=== PATIENT | female | born 2000 | race Two or more races ===

== ENCOUNTER 2022-07-07 01:46 | Emergency (ER) | payer OTHER ==
--- OUTSIDE RECORDS SUMMARY | 2022-07-07 01:51 | XMS REPORT | Continuity of Care Document ---
:2000 Author Organization [facility] t Address [address] [place] [place] [address] Care Team Providers Name Role Phone MARIELY BLOUNT Primary Care Physician Unavailable JOSE MOYER Attending Clinician Unavailable FLAVIA DUVAL Attending Clinician Unavailable MARIELY BLUONT Attending Clinician Unavailable PRAMOD OCONNOR Attending Clinician Unavailable PRAMOD OCONNOR Attending Clinician Unavailable Osbaldo Larose Attending Clinician Rody Mojica MA Attending Clinician Unavailable OSBALDO BERMEO Attending Clinician Unavailable ANTONIO AKHTAR Attending Clinician Unavailable Mariely Varela Attending Clinician NEVAEH JIMENEZ Attending Clinician Unavailable NEVAEH JIMENEZ Attending Clinician Unavailable Bhaskar Joy RN Attending Clinician Unavailable Jose Moyer MD Attending Clinician Riky Salcido RPH Attending Clinician Unavailable Cynthia[facility] Attending Clinician Unavailable LOLA CURRY Attending Clinician Unavailable Payers Payer Name Policy Type Policy Number Effective Date Expiration Date S abimael [facility] [id number] 2021 00:00:00 [facility] [id number] 2021 00:00:00 Problems Condition Condition Condition Status Onset Resolution Last Treating Co mments Source Name Details Category Date Date Treatment Clinician Date Intractabl Intractabl Disease Active 2021-06 U nivers e migraine e migraine 1-11 it y of without without 00:00: [place] aura and aura and 00 Medica l without without Branch status status migrainosu migrainosu s s Bilateral Bilateral Disease Active 2021-06 Uni vers occipital occipital 06-22 ity of neuralgia neuralgia 00:[place] [facility] [place] Memory Memory Disease Active 2021-06 Univers disturbanc disturbanc 06-22 it y of e e 00:00: [place] 00 Medical Branch Nausea Nausea Disease Active 2021-06 Univers 11 ity of 00:00: [place] 00 Medical Branch Allergies, Adverse Reactions, Alerts Allergy Allergy Status Severity Reaction(s) Onset Inactive Treating Comm ents Source Name Type Date Date Clinician Penicill Propensi Active Anaphylaxis 2021-06 U nivers ins ty to 06-22 ity of adverse 00:00: [place] reaction 00 Medical s Branch PENICILL Drug Active High Anaphylaxis 2021-06 Uni vers INS Class 06-22 ity of 00:00: [place] 00 Medical Branch Penicill Propensi Active Other (See 2020-06 unknown M ethodi in G ty to Comments) 06-29 st adverse 00:00: Hospita reaction 00 l s to drug NO KNOWN Drug Active Univers ALLERGIE Class ity of S [facility] Social History Social Habit Start Date Stop Date Quantity Comments Source History of Passive smoker University of tobacco use [facility] Exposure to 2022-06-20 2022-06-30 Not sure [facility] SARS-CoV-2 00:00:00 10:04:00 [facility] (event) [place] Alcohol intake 2022-05-24 2022-05-24 Current drinker Unive rsity of 00:00:00 00:00:00 of alcohol [facility] (finding) [place] Tobacco use and 2022-04-28 2022-04-28 Smokeless tobacco Un iversity of exposure 00:00:00 00:00:00 non-user [facility] Alcohol Comment 2022-04-22 2022-04-22 occ Universit y of 00:00:00 00:00:00 [facility] Sex Assigned At [birth year] [facility] 00:00:00 00:00:00 Smoking Status Start Date Stop Date Source Tobacco smoking consumption Meth [facility] unknown Never smoked tobacco [facility] Medications Ordered Filled Start Stop Current Ordering Indication Dosage Frequency Signature Comments Components Source Medication Medication Date Date Medication? Clinician (SIG) Name Name liraglutide 2021-06- Yes [id number] inject 0.6 Univers , weight 2-22 02-03 mg under ity of loss, 3 00:00: 05:59 the skin [place] mg/0.5 mL 00 :00 daily for Medic al (18 mg/3 7 days, Branch mL) PnIj THEN 1.2 mg daily for 7 days, THEN 1.8 mg daily for 7 days, THEN 2.4 mg daily for 7 days, THEN 3 mg daily thereafter . liraglutide 2021-06- Yes [id number] inject 0.6 Univers , weight 2-22 02-03 mg under ity of loss, 3 00:00: 05:59 the skin [place] mg/0.5 mL 00 :00 daily for Medic al (18 mg/3 7 days, Branch mL) PnIj THEN 1.2 mg daily for 7 days, THEN 1.8 mg daily for 7 days, THEN 2.4 mg daily for 7 days, THEN 3 mg daily thereafter . liraglutide 2021-06- Yes [id number] inject 0.6 Univers , weight 2-22 02-03 mg under ity of loss, 3 00:00: 05:59 the skin [place] mg/0.5 mL 00 :00 daily for Medic al (18 mg/3 7 days, Branch mL) PnIj THEN 1.2 mg daily for 7 days, THEN 1.8 mg daily for 7 days, THEN 2.4 mg daily for 7 days, THEN 3 mg daily thereafter . liraglutide 2021-06- Yes [id number] .6mg inject 0.6 Univers , weight 2-22 01-22 mg under ity of loss, 3 00:00: 05:59 the skin [place] mg/0.5 mL 00 :00 in the Medical (18 mg/3 morning Branch mL) PnIj for 30 days. tirzepatide 2021-06- No [id number] 2.5mg inject 1 Univers (MOUNJARO) -27 05- pen (2.5 ity of 2.5 mg/0.5 00:00: 00:00 mg) under [place] mL PnIj 00 :00 the skin Medical weekly for Branch 30 days. tirzepatide 2021-06- No [id number] 2.5mg inject 1 Univers (MOUNJARO) 2-16 -22 pen (2.5 ity of 2.5 mg/0.5 00:00: 00:00 mg) under [place] mL PnIj 00 :00 the skin [facility] weekly for Branch 30 days. tirzepatide 2021-06- Yes [id number] inject 2.5 Univers 2.5 mg/0.5 2-15 02-14 mg under ity of mL 00:00: 05:59 the skin [place] subcutaneou 00 :00 weekly for Me dical s injection 30 days, Bran ch THEN 5 mg weekly for 30 days. tirzepatide 2021-06- No [id number] inject 2.5 Univers 2.5 mg/0.5 2-15 12-16 mg under ity of mL 00:00: 00:00 the skin [place] subcutaneou 00 :00 weekly for Me dical s injection 30 days, Bran ch THEN 5 mg weekly for 30 days. semaglutide 2021-06- No [id number] inject 2.5 Univers , weight 2-14 12-15 mg under ity of loss, 00:00: 00:00 the skin [facility]) 00 :00 weekly for Medic al 0.5 mg/0.5 30 days, Branc h mL PnIj SC THEN 0.5 injection mg weekly for 30 days. semaglutide 2021-06- No [id number] inject 2.5 Univers , weight 2-14 12-15 mg under ity of loss, 00:00: 00:00 the [facility] ([facility]) 00 :00 weekly for Medic al 0.5 mg/0.5 30 days, Branc h mL PnIj SC THEN 0.5 injection mg weekly for 30 days. semaglutide 2021-06- No [id number] inject 2.5 Univers , weight 2-14 12-15 mg under ity of loss, 00:00: 00:00 the [facility] ([facility]) 00 :00 weekly for Medic al 0.5 mg/0.5 30 days, Branc h mL PnIj SC THEN 0.5 injection mg weekly for 30 days. semaglutide 2021-06- No [id number] inject Univers , weight 2-13 12-14 0.25 mg ity of loss, 00:00: 00:00 under the [facility]) 00 :00 skin Medical 0.25 mg/0.5 weekly for Br anch mL PnIj SC 30 days, injection THEN 0.25 mg weekly for 30 days. semaglutide 2021-06- No [id number] inject Univers , weight 2-13 12-14 0.25 mg ity of loss, 00:00: 00:00 under the [place] (WEGOVY) 00 :00 skin Medical 0.25 mg/0.5 weekly for Br anch mL PnIj SC 30 days, injection THEN 0.25 mg weekly for 30 days. Cholecalcif 2021-06 Yes [id number] Take 1 Univers [place], 1-14 capsule by ity of Vitamin D3, 00:00: mouth [place] 1,250 mcg 00 weekly. Medical (50,000 Branch unit) capsule Cholecalcif 2021-06 Yes [id number] Take 1 Univers [place], 1-14 capsule by ity of Vitamin D3, 00:00: mouth [place] 1,250 mcg 00 weekly. Medical (50,000 Branch unit) capsule Cholecalcif 2021-06 Yes [id number] Take 1 Univers [place], 1-14 capsule by ity of Vitamin D3, 00:00: mouth [place] 1,250 mcg 00 weekly. Medical (50,000 Branch unit) capsule Cholecalcif 2021- Yes [id number] Take 1 Univers [place], 1-14 capsule by ity of Vitamin D3, 00:00: mouth [place] 1,250 mcg 00 weekly. Medical (50,000 Branch unit) capsule Cholecalcif 2021- Yes [id number] Take 1 Univers [place], 1-14 capsule by ity of Vitamin D3, 00:00: mouth [place] 1,250 mcg 00 weekly. Medical (50,000 Branch unit) capsule Cholecalcif 2021- Yes [id number] Take 1 Univers [place], 1-14 capsule by ity of Vitamin D3, 00:00: mouth [place] 1,250 mcg 00 weekly. Medical (50,000 Branch unit) capsule Cholecalcif 2021- Yes [id number] Take 1 Univers [place], 1-14 capsule by ity of Vitamin D3, 00:00: mouth [place] 1,250 mcg 00 weekly. Medical (50,000 Branch unit) capsule Cholecalcif 2021- Yes [id number] Take 1 Univers [place], 1-14 capsule by ity of Vitamin D3, 00:00: mouth [place] 1,250 mcg 00 weekly. Medical (50,000 Branch unit) capsule Cholecalcif 2021-06 Yes [id number] Take 1 Univers [place], 1-14 capsule by ity of Vitamin D3, 00:00: mouth [place] 1,250 mcg 00 weekly. Medical (50,000 Branch unit) capsule Cholecalcif 2021-06 Yes [id number] Take 1 Univers [place], 1-14 capsule by ity of Vitamin D3, 00:00: mouth [place] 1,250 mcg 00 weekly. Medical (50,000 Branch unit) capsule Cholecalcif 2021-06 Yes [id number] Take 1 Univers [place], 1-14 capsule by ity of Vitamin D3, 00:00: mouth [place] 1,250 mcg 00 weekly. Medical (50,000 Branch unit) capsule Cholecalcif 2021-06 Yes [id number] Take 1 Univers [place], 1-14 capsule by ity of Vitamin D3, 00:00: mouth [place] 1,250 mcg 00 weekly. Medical (50,000 Branch unit) capsule Cholecalcif 2021-06 Yes [id number] Take 1 Univers [place], 1-14 capsule by ity of Vitamin D3, 00:00: mouth [place] 1,250 mcg 00 weekly. Medical (50,000 Branch unit) capsule magnesium 2021-06 Yes [id number] 400mg Take 400 Univers oxide 400 1-11 mg by ity of mg 00:00: mouth [place] magnesium 00 daily. Medical Tab Branch fremanezuma 2021-06 Yes [id number] 225mg inject 1 Univers b-vfrm 1-11 Syringe ity of (AJOVY 00:00: under the [place] AUTOINJECTO 00 skin once Med ical R) 225 every Branch mg/1.5 mL month. AtIn amitriptyli 2021-06 Yes [id number] 25mg Take 1 Univers ne 25 mg 1-11 tablet by ity of tablet 00:00: mouth at [place] 00 bedtime. Medical Branch proMETHazin 2021-06 Yes [id number] 12.5mg Take 1 Univers e 12.5 mg 1-11 tablet by ity o f tablet 00:00: mouth [place] 00 every 4 Medical (four) Branch hours as needed for Nausea and Vomiting (N/V). magnesium 2021-06 Yes [id number] 400mg Take 400 Univers oxide 400 1-11 mg by ity of mg 00:00: mouth [place] magnesium 00 daily. Medical Tab Branch fremanezuma 2021-06 Yes [id number] 225mg inject 1 Univers b-vfrm 1-11 Syringe ity of (AJOVY 00:00: under the [place] AUTOINJECTO 00 skin once Med ical R) 225 every Branch mg/1.5 mL month. AtIn SUMAtriptan 2021-06 Yes TAKE 1 Univ ers 50 mg 1-11 TABLET BY ity of tablet 00:00: MOUTH 1 [place] 00 TIME NOW Medical FOR 1 DOSE Branch amitriptyli 2021-06 Yes [id number] 25mg Take 1 Univers ne 25 mg 1-11 tablet by ity of tablet 00:00: mouth at [place] 00 bedtime. Medical Branch proMETHazin 2021-06 Yes [id number] 12.5mg Take 1 Univers e 12.5 mg 1-11 tablet by ity o f tablet 00:00: mouth [place] 00 every 4 Medical (four) Branch hours as needed for Nausea and Vomiting (N/V). magnesium 2021-06 Yes [id number] 400mg Take 400 Univers oxide 400 1-11 mg by ity of mg 00:00: mouth [place] magnesium 00 daily. Medical Tab Branch [facility] 2021-06 Yes [id number] 225mg inject 1 Univers b-vfrm 1-11 Syringe ity of (AJOVY 00:00: under the [place] AUTOINJECTO 00 skin once Med ical R) 225 every Branch mg/1.5 mL month. AtIn SUMAtriptan 2021-06 Yes TAKE 1 Univ ers 50 mg 1-11 TABLET BY ity of tablet 00:00: MOUTH 1 [place] 00 TIME NOW Medical FOR 1 DOSE Branch amitriptyli 2021-06 Yes [id number] 25mg Take 1 Univers ne 25 mg 1-11 tablet by ity of tablet 00:00: mouth at [place] 00 bedtime. Medical Branch proMETHazin 2021-06 Yes [id number] 12.5mg Take 1 Univers e 12.5 mg 1-11 tablet by ity o f tablet 00:00: mouth [place] 00 every 4 Medical (four) Branch hours as needed for Nausea and Vomiting (N/V). magnesium 2021-06 Yes [id number] 400mg Take 400 Univers oxide 400 1-11 mg by ity of mg 00:00: mouth [place] magnesium 00 daily. Medical Tab Branch christaezuma 2021-06 Yes [id number] 225mg inject 1 Univers b-vfrm 1-11 Syringe ity of (AJOVY 00:00: under the [place] AUTOINJECTO 00 skin once Med ical R) 225 every Branch mg/1.5 mL month. AtIn SUMAtriptan 2021-06 Yes TAKE 1 Univ ers 50 mg 1-11 TABLET BY ity of tablet 00:00: MOUTH 1 [place] 00 TIME NOW Medical FOR 1 DOSE Branch amitriptyli 2021-06 Yes [id number] 25mg Take 1 Univers ne 25 mg 1-11 tablet by ity of tablet 00:00: mouth at [place] 00 bedtime. Medical Branch proMETHazin 2021-06 Yes [id number] 12.5mg Take 1 Univers e 12.5 mg 1-11 tablet by ity o f tablet 00:00: mouth [place] 00 every 4 Medical (four) Branch hours as needed for Nausea and Vomiting (N/V). magnesium 2021-06 Yes [id number] 400mg Take 400 Univers oxide 400 1-11 mg by ity of mg 00:00: mouth [place] magnesium 00 daily. Medical Tab Branch christaonesimo 2021-06 Yes [id number] 225mg inject 1 Univers b-vfrm 1-11 Syringe ity of (AJOVY 00:00: under the [place] AUTOINJECTO 00 skin once Med ical R) 225 every Branch mg/1.5 mL month. AtIn SUMAtriptan 2021-06 Yes TAKE 1 Univ ers 50 mg 1-11 TABLET BY ity of tablet 00:00: MOUTH 1 [place] 00 TIME NOW Medical FOR 1 DOSE Branch amitriptyli 2021-06 Yes [id number] 25mg Take 1 Univers ne 25 mg 1-11 tablet by ity of tablet 00:00: mouth at [place] 00 bedtime. Medical Branch proMETHazin 2021-06 Yes [id number] 12.5mg Take 1 Univers e 12.5 mg 1-11 tablet by ity o f tablet 00:00: mouth [place] 00 every 4 Medical (four) Branch hours as needed for Nausea and Vomiting (N/V). magnesium 2021-06 Yes [id number] 400mg Take 400 Univers oxide 400 1-11 mg by ity of mg 00:00: mouth [place] magnesium 00 daily. Medical Tab Branch fremanezuma 2021-06 Yes [id number] 225mg inject 1 Univers b-vfrm 1-11 Syringe ity of (AJOVY 00:00: under the [place] AUTOINJECTO 00 skin once Med ical R) 225 every Branch mg/1.5 mL month. AtIn SUMAtriptan 2021-06 Yes TAKE 1 Univ ers 50 mg 1-11 TABLET BY ity of tablet 00:00: MOUTH 1 00 TIME NOW Medical FOR 1 DOSE Branch amitriptyli 2021-06 Yes [id number] 25mg Take 1 Univers ne 25 mg 1-11 tablet by ity of tablet 00:00: mouth at [place] 00 bedtime. Medical Branch proMETHazin 2021-06 Yes [id number] 12.5mg Take 1 Univers e 12.5 mg 1-11 tablet by ity o f tablet 00:00: mouth [place] 00 every 4 Medical (four) Branch hours as needed for Nausea and Vomiting (N/V). magnesium 2021-06 Yes [id number] 400mg Take 400 Univers oxide 400 1-11 mg by ity of mg 00:00: mouth [place] magnesium 00 daily. Medical Tab Branch [facility] 2021-06 Yes [id number] 225mg inject 1 Univers b-vfrm 1-11 Syringe ity of (AJOVY 00:00: under the [place] AUTOINJECTO 00 skin once Med ical R) 225 every Branch mg/1.5 mL month. AtIn SUMAtriptan 2021-06 Yes TAKE 1 Univ ers 50 mg 1-11 TABLET BY ity of tablet 00:00: MOUTH 00 TIME NOW Medical FOR 1 DOSE Branch amitriptyli 2021-06 Yes [id number] 25mg Take 1 Univers ne 25 mg 1-11 tablet by ity of tablet 00:00: mouth at [place] 00 bedtime. Medical Branch proMETHazin 2021-06 Yes [id number] 12.5mg Take 1 Univers e 12.5 mg 1-11 tablet by ity o f tablet 00:00: mouth [place] 00 every 4 Medical (four) Branch hours as needed for Nausea and Vomiting (N/V). magnesium 2021-06 Yes [id number] 400mg Take 400 Univers oxide 400 1-11 mg by ity of mg 00:00: mouth [place] magnesium 00 daily. Medical Tab Branch fremanezuma 2021-06 Yes [id number] 225mg inject 1 Univers b-vfrm 1-11 Syringe ity of (AJOVY 00:00: under the [place] AUTOINJECTO 00 skin once Med ical R) 225 every Branch mg/1.5 mL month. AtIn SUMAtriptan 2021-06 Yes TAKE 1 Univ ers 50 mg 1-11 TABLET BY ity of tablet 00:00: MOUTH 1 00 TIME NOW Medical FOR 1 DOSE Branch amitriptyli 2021-06 Yes [id number] 25mg Take 1 Univers ne 25 mg 1-11 tablet by ity of tablet 00:00: mouth at [place] 00 bedtime. Medical Branch proMETHazin 2021-06 Yes [id number] 12.5mg Take 1 Univers e 12.5 mg 1-11 tablet by ity o f tablet 00:00: mouth [place] 00 every 4 Medical (four) Branch hours as needed for Nausea and Vomiting (N/V). magnesium 2021-06 Yes [id number] 400mg Take 400 Univers oxide 400 1-11 mg by ity of mg 00:00: mouth [place] magnesium 00 daily. Medical Tab Branch fremanezuma 2021-06 Yes [id number] 225mg inject 1 Univers b-vfrm 1-11 Syringe ity of (AJOVY 00:00: under the [place] AUTOINJECTO 00 skin once Med ical R) 225 every Branch mg/1.5 mL month. AtIn amitriptyli 2021-06 Yes [id number] 25mg Take 1 Univers ne 25 mg 1-11 tablet by ity of tablet 00:00: mouth at [place] 00 bedtime. Medical Branch SUMAtriptan 2021-06 Yes TAKE 1 Univ ers 50 mg 1-11 TABLET BY ity of tablet 00:00: MOUTH 1 00 TIME NOW Medical FOR 1 DOSE Branch amitriptyli 2021-06 Yes [id number] 25mg Take 1 Univers ne 25 mg 1-11 tablet by ity of tablet 00:00: mouth at [place] 00 bedtime. Medical Branch proMETHazin 2021-06 Yes [id number] 12.5mg Take 1 Univers e 12.5 mg 1-11 tablet by ity o f tablet 00:00: mouth [place] 00 every 4 Medical (four) Branch hours as needed for Nausea and Vomiting (N/V). magnesium 2021-06 Yes [id number] 400mg Take 400 Univers oxide 400 1-11 mg by ity of mg 00:00: mouth [place] magnesium 00 daily. Medical Tab Branch fremanezuma 2021-06 Yes [id number] 225mg inject 1 Univers b-vfrm 1-11 Syringe ity of (AJOVY 00:00: under the [place] AUTOINJECTO 00 skin once Med ical R) 225 every Branch mg/1.5 mL month. AtIn SUMAtriptan 2021-06 Yes TAKE 1 Univ ers 50 mg 1-11 TABLET BY ity of tablet 00:00: MOUTH 1 [place] 00 TIME NOW Medical FOR 1 DOSE Branch proMETHazin 2021-06 Yes [id number] 12.5mg Take 1 Univers e 12.5 mg 1-11 tablet by ity o f tablet 00:00: mouth [place] 00 every 4 Medical (four) Branch hours as needed for Nausea and Vomiting (N/V). magnesium 2021-06 Yes [id number] 400mg Take 400 Univers oxide 400 1-11 mg by ity of mg 00:00: mouth [place] magnesium 00 daily. Medical Tab [facility] Yes [id number] 225mg inject 1 Univers b-vfrm 1-11 Syringe ity of (AJOVY 00:00: under the [place] AUTOINJECTO 00 skin once Med ical R) 225 every Branch mg/1.5 mL month. AtIn amitriptyli 2021-06 Yes [id number] 25mg Take 1 Univers ne 25 mg 1-11 tablet by ity of tablet 00:00: mouth at [place] 00 bedtime. Medical Branch proMETHazin 2021-06 Yes [id number] 12.5mg Take 1 Univers e 12.5 mg 1-11 tablet by ity o f tablet 00:00: mouth [place] 00 every 4 Medical (four) Branch hours as needed for Nausea and Vomiting (N/V). magnesium 2021-06 Yes [id number] 400mg Take 400 Univers oxide 400 1-11 mg by ity of mg 00:00: mouth [place] magnesium 00 daily. Medical Tab Branch [facility] 2021-06 Yes [id number] 225mg inject 1 Univers b-vfrm 1-11 Syringe ity of (AJOVY 00:00: under the [place] AUTOINJECTO 00 skin once Med ical R) 225 every Branch mg/1.5 mL month. AtIn amitriptyli 2021-06 Yes [id number] 25mg Take 1 Univers ne 25 mg 1-11 tablet by ity of tablet 00:00: mouth at [place] 00 bedtime. Medical Branch proMETHazin 2021-06 Yes [id number] 12.5mg Take 1 Univers e 12.5 mg 1-11 tablet by ity o f tablet 00:00: mouth [place] 00 every 4 Medical (four) Branch hours as needed for Nausea and Vomiting (N/V). magnesium 2021-06 Yes [id number] 400mg Take 400 Univers oxide 400 1-11 mg by ity of mg 00:00: mouth [place] magnesium 00 daily. Medical Tab Branch fremanezuma 2021-06 Yes [id number] 225mg inject 1 Univers b-vfrm 1-11 Syringe ity of (AJOVY 00:00: under the [place] AUTOINJECTO 00 skin once Med ical R) 225 every Branch mg/1.5 mL month. AtIn amitriptyli 2021-06 Yes [id number] 25mg Take 1 Univers ne 25 mg 1-11 tablet by ity of tablet 00:00: mouth at [place] 00 bedtime. Medical Branch proMETHazin 2021-06 Yes [id number] 12.5mg Take 1 Univers e 12.5 mg 1-11 tablet by ity o f tablet 00:00: mouth [place] 00 every 4 Medical (four) Branch hours as needed for Nausea and Vomiting (N/V). magnesium 2021-06 Yes [id number] 400mg Take 400 Univers oxide 400 1-11 mg by ity of mg 00:00: mouth [place] magnesium 00 daily. Medical Tab Branch fremanezuma 2021-06 Yes [id number] 225mg inject 1 Univers b-vfrm 1-11 Syringe ity of (AJOVY 00:00: under the [place] AUTOINJECTO 00 skin once Med ical R) 225 every Branch mg/1.5 mL month. AtIn amitriptyli 2021-06 Yes [id number] 25mg Take 1 Univers ne 25 mg 1-11 tablet by ity of tablet 00:00: mouth at [place] 00 bedtime. Medical Branch proMETHazin 2021-06 Yes [id number] 12.5mg Take 1 Univers e 12.5 mg 1-11 tablet by ity o f tablet 00:00: mouth [place] 00 every 4 Medical (four) Branch hours as needed for Nausea and Vomiting (N/V). magnesium 2021-06 Yes [id number] 400mg Take 400 Univers oxide 400 1-11 mg by ity of mg 00:00: mouth [place] magnesium 00 daily. Medical Tab Branch [facility] Yes [id number] 225mg inject 1 Univers b-vfrm 1-11 Syringe ity of (AJOVY 00:00: under the [place] AUTOINJECTO 00 skin once Med ical R) 225 every Branch mg/1.5 mL month. AtIn amitriptyli 2021-06 Yes [id number] 25mg Take 1 Univers ne 25 mg 1-11 tablet by ity of tablet 00:00: mouth at [place] 00 bedtime. Medical Branch proMETHazin 2021-06 Yes [id number] 12.5mg Take 1 Univers e 12.5 mg 1-11 tablet by ity o f tablet 00:00: mouth [place] 00 every 4 Medical (four) Branch hours as needed for Nausea and Vomiting (N/V). magnesium 2021-06 Yes [id number] 400mg Take 400 Univers oxide 400 1-11 mg by ity of mg 00:00: mouth [place] magnesium 00 daily. Medical Tab Branch [facility] 2021-06 Yes [id number] 225mg inject 1 Univers b-vfrm 1-11 Syringe ity of (AJOVY 00:00: under the [place] AUTOINJECTO 00 skin once Med ical R) 225 every Branch mg/1.5 mL month. AtIn amitriptyli 2021-06 Yes [id number] 25mg Take 1 Univers ne 25 mg 1-11 tablet by ity of tablet 00:00: mouth at [place] 00 bedtime. Medical Branch proMETHazin 2021-06 Yes [id number] 12.5mg Take 1 Univers e 12.5 mg 1-11 tablet by ity o f tablet 00:00: mouth [place] 00 every 4 Medical (four) Branch hours as needed for Nausea and Vomiting (N/V). SUMAtriptan 2021-06- Yes [id number] 50mg Take 1 Univers 50 mg 1-11 11-12 tablet by ity of tablet 00:00: 05:59 mouth [place] 00 :00 now for 1 Medical dose. Branch SUMAtriptan 2021-06- Yes [id number] 50mg Take 1 Univers 50 mg 06-22 tablet by ity of tablet 00:00: 05:59 mouth [place] 00 :00 now for 1 Medical dose. Branch SUMAtriptan 2021-06- Yes [id number] 50mg Take 1 Univers 50 mg 06-22 tablet by ity of tablet 00:00: 05:59 mouth [place] 00 :00 now for 1 Medical dose. Branch No known 2020-06 No No known Metho di medications -[address] 08:57: [facility] l Vital Signs Vital Name Observation Time Observation Value Comments Source Systolic blood 2022-05-24 21:30:00 114 mm[Hg] [facility] Diastolic blood 2022-05-24 21:30:00 79 mm[Hg] [facility] Heart rate 2022-05-24 21:30:00 94 /min [facility] Body temperature 2022-05-24 21:30:[address] [facility] Respiratory rate 2022-05-24 21:30:00 20 /min [facility] Body height 2022-05-24 21:30:[address] [facility] Body weight 2022-05-24 21:30:[address] [facility] BMI 2022-05-24 21:30:00 36.82 kg/m2 [facility] Oxygen saturation in 2022-05-24 21:30:00 100 /min [facility] Arterial blood by [facility] Pulse oximetry Branch Systolic blood 2022-04-28 15:58:00 130 mm[Hg] [facility] Diastolic blood 2022-04-28 15:58:00 69 mm[Hg] [facility] Heart rate 2022-04-28 15:58:00 77 /min [facility] Body temperature 2022-04-28 15:58:00 37.06 [facility] [place] [facility] 2022-04-28 15:58:[address] [facility] Body weight 2022-04-28 15:58:[address] [facility] BMI 2022-04-28 15:58:00 36.01 kg/m2 [facility] Systolic blood 2022-04-22 20:51:00 112 mm[Hg] Univer sity of pressure [facility] Diastolic blood 2022-04-22 20:51:00 74 mm[Hg] Unive rsity of pressure [facility] Heart rate 2022-04-22 20:51:00 94 /min [facility] Body height 2022-04-22 20:51:[address] [facility] Body weight 2022-04-22 20:51:[address] [facility] BMI 2022-04-22 20:51:00 35.67 kg/m2 [facility] Oxygen saturation in 2022-04-22 20:51:00 98 /min [facility] Arterial blood by [facility] Pulse oximetry Branch Procedures Procedure Date / Time Performed Performing Clinician Sourc e POCT HEMOGLOBIN A1C 2022-05-24 00:00:00 Mariely Blount [facility] TEST [facility] POCT TEST 2022-04-28 00:00:[address] [facility] Plan of Care Planned Activity Planned Date Details Comments Source Future Scheduled 2022-07-07 [facility]ZA [facility]ACCINE [facility] Test 01:49:44 [code = INFLUENZA VACCINE] Future Scheduled 2022-07-07 COVID-19 [facility] 01:49:44 [code = COVID-19 VACCINE (#1)] Future Scheduled 2022-07-07 [facility] 01:49:44 Chlamydia trachomatis (procedure) [code = 238746738] Future Scheduled 2022-07-07 Hepatitis C screening [facility] Test 01:49:44 (procedure) [code = 168127464] Future Scheduled 2022-07-07 [facility] Test 01:49:44 malignant neoplasm of cervix (procedure) [code = 850797757] Encounters Start End Encounter Admission Attending Care Care Encounter Source Date/Time Date/Time Type Type Clinicians Facility Department ID 2022-07-06 Outpatient [facility] [id number] [place] 06:52:18 [id number] [facility] 2022-05-11 Outpatient [facility] [id number] [place] 08:35:23 [id number] [facility] 2022-04-28 Outpatient [facility] [id number] [place] 16:12:19 [id number] [facility] 2022-07-11 2022-07-11 Outpatient SIMIN, [facility] [id number] [place] 15:40[facility]07-06 Outpatient R MINE, [facility] [id number] Univers 15:00:00 15:00:00 MARIELY [facility] 2022-07-06 2022-07-06 Outpatient R [facility] [id number] Univers 14:00:00 [facility] 2022-07-04 Outpatient R [facility]AMOD [facility] B [id number] Univers 15:30:00 15:30:00 PRAMOD OCONNOR [facility] 2022-07-04 2022-07-04 [id number] Univers 00:00:00 00:00:00 Secure Msg Lycia HEALTH [id number] [id number] [phone] [facility] [address] OFFICE BUILDING 2022-06-30 2022-06-30 [facility] [id number] Univers 00:00:00 00:00:00 Secure Msg Rody [place] [id number] [place] [id number] Ak dical [facility] [address] BUILDING 2022-06-22 2022-06-22 [facility] [id number] Univers 14:30:00 14:30:00 OSBALDO [facility] 2022-06-16 2022-06-16 [facility] [id number] Univers 14:00:00 14:00:00 LYCIA [facility] 2022-05-30 2022-05-30 Telephone Mine [facility] [id number] Univers 00:00:00 00:00:00 Mariely FAMILY [id number] it y of MEDICINE [id number] Misael as CLINIC - [phone] [address] 2022-05-27 2022-05-27 Case Mine [facility] [id number] Univers 00:00:00 00:00:00 Management Mariely FAMILY [id number] ity of [place]IC[place] 4.2.7.2.686 [place] as CLINIC - [phone] [address] 2022-05-25 2022-05-25 Outpatient R MINE [facility] [id number] Univers 09:30:00 09:30:00 [facility] 2022-05-25 2022-05-25 Patient Mine [facility] [id number] Univers 00:00:00 00:00:00 Secure Msg Mariely FAMILY [id number] ity of [place] [id number] [place] as CLINIC - [id number] [address] 2022-05-24 2022-05-24 Office Mine [facility] [id number] Univers 15:30:00 16:00:00 Visit Mariely FAMILY [id number] it y of [place]IC[place] [id number] [place] as CLINIC - [id number] [address] 2022-05-24 2022-05-24 Outpatient R MINE [facility] [id number] Univers 15:30:00 15:30:00 [facility] 2022-05-20 2022-05-20 Outpatient R NEVAEH JIMENEZ [facility] [id number] Univers 09:00:00 09:00:00 NEVAEH JIMENEZ [facility] 2022-05-18 2022-05-18 Outpatient R MINE [facility] [id number] Univers 15:30:00 15:30:00 MARIELY [facility] 2022-05-17 2022-05-17 Outpatient R HERMILO [facility] [id number] Univers 14:30:00 14:30:00 ANTONIO mays [facility] 2022-05-17 2022-05-17 Outpatient R MINE [facility] [id number] Univers 09:30:00 09:30:00 MARIELY [facility] 2022-05-13 2022-05-13 Pre Visit YEISON Joy [id number] Univers 00:00:00 00:00:00 Outreach Bhaskar KENNY 350.1.13.10 i [place] [id number] [place] [id number] [place] 2022-04-28 2022-04-28 Outpatient R JOSE MOYER [facility] [id number] Univers 10:00:00 10:28:00 ity [facility] 2022-04-28 2022-04-28 Office Jose Moyer [facility] [id number] Univers 10:00:00 10:28:00 Visit Luciano CALLE 350.1.13.10 i ty [place] [id number] [facility] [address] [facility] 2022-04-27 2022-04-27 Telephone Omari [facility] [id number] Univers 00:00:00 00:00:00 [employer] 350.1.13.10 it [place] [id number] [address] ([facility]) 2022-04-25 2022-04-25 Telephone Elvie [facility] [id number] Univers 00:00:00 00:00:00 Lycia PRIMARY 350.1.13.10 it [id number] [phone] Me dic[address] 2022-04-22 2022-04-22 Animal Control Licensing Worker Draw, Clc-Bls Lab [facility] [id number] Univers 16:00:00 16:15:00 [facility] [id number] [id number] [phone] [address] OFFICE BUILDING 2022-04-22 2022-04-22 Office [facility] [id number] Univers 15:00:00 15:56:25 Visit [facility] 350.1.13.10 it [place] [id number] [address] OFFICE [facility] 2022-04-22 2022-04-22 Outpatient R ELVIE [facility] [id number] Univers 15:00:00 15:56:25 [facility] ity [facility] 2021-04-29 2021-04-29 [place] [id number] [address] [place] 00:00:00 00:00:00 LOLA Johnson Method i st Results Test Description Test Time Test Comments Results Result Comments Source POCT HEMOGLOBIN A1C TEST 2022-05-24 22:20:00 Test Item Value Reference Range Interpretation Comme nts POCT HBA1C (test code = 4548-4) 5.3 % 4-6 Lab Interpretation (test code = 35364-7) Normal [facility] HEMOGLOBIN A1C [id number] 22:20:00 Test Item Value Reference Range Interpretation Comments POCT HBA1C (test code = 4548-4) 5.3 % 4-6 Lab Interpretation (test code = Normal 13126-6) [facility] [id number] 16:34:00 Test Item Value Reference Range Interpretation Comments POCT PREG (test code = 1605) Negative On board controls acceptable with C Yes Line (test code = 3574) POCT PREG LOT # (test code = 3575) POCT PREG TEST DATE (test code = 3576) [facility] [id number] 16:34:00 Test Item Value Reference Range Interpretation Comments POCT PREG (test code = 1605) Negative On board controls acceptable with C Yes Line (test code = 3574) POCT PREG LOT # (test code = 3575) POCT PREG TEST DATE (test code = 3576) [facility]
--- NOTE | 2022-07-07 02:12 | ER ---
Nurse's Notes [facility] Name: Mando Dillon Age: 21 yrs Sex: Female : 2000 Arrival Date: 07/07/2022 Time: 01:48 Bed 13 Private MD: Diagnosis: Trigeminal neuralgia;Dental caries on pit and fissure surface Presentation: 07/07 01:57 Chief complaint: Patient states: I have a horrible tooth ache on my right side of my ha1 jaw. Coronavirus screen: Vaccine status: Patient reports being unvaccinated. Ebola Screen: No symptoms or risks identified at this time. Initial Sepsis Screen: Does the patient meet any 2 criteria? No. Patient's initial sepsis screen is negative. Does the patient have a suspected source of infection? No. Patient's initial sepsis screen is negative. Risk Assessment: Do you want to hurt yourself or someone else? Patient reports no desire to harm self or others. Onset of symptoms was July 07, 2022. 01:57 Method Of Arrival: Ambulatory ha1 01:57 Acuity: MANJIT 4 ha1 Triage Assessment: 02:00 General: Appears uncomfortable, Behavior is cooperative, crying. Pain: Complains of ha1 pain in right side of jaw Pain does not radiate. Pain currently is 10 out of 10 on a pain scale. Alleviated by medications. EENT:. Neuro: Level of Consciousness is awake, alert, obeys commands, Oriented to person, place, time, situation. Cardiovascular: Capillary refill < 3 seconds Patient's skin is warm and dry. Respiratory: Airway is patent Respiratory effort is even, unlabored, Respiratory pattern is regular, symmetrical. GI: No signs and/or symptoms were reported involving the gastrointestinal system. Abdomen is non-distended, obese. : No signs and/or symptoms were reported regarding the genitourinary system. Derm: Skin is normal. Musculoskeletal: Circulation, motion, and sensation intact. Historical: - Allergies: 02:00 PENICILLINS; ha1 - Home Meds: 02:00 None [Active]; ha1 - PMHx: 02:00 None; ha1 - Immunization history:: Adult Immunizations up to date. - Social history:: Smoking status: Patient denies any tobacco usage or history of. Screenin:03 Abuse screen: Denies threats or abuse. Denies injuries from another. Nutritional ha1 screening: No deficits noted. Tuberculosis screening: No symptoms or risk factors identified. 02:38 [facility] ED Fall Risk Assessment (Adult) History of falling in the last 3 months, ha1 including since admission No falls in past 3 months (0 pts) Confusion or Disorientation No (0 pts) Intoxicated or Sedated No (0 pts) Impaired Gait No (0 pts) Mobility Assist Device Used No (0 pt) Altered Elimination No (0 pt) Score/Fall Risk Level 0 - 2 = Low Risk Oriented to surroundings, Maintained a safe environment, Educated pt \T\ family on fall prevention, incl call for assistance when getting out of bed. Assessment: 01:52 General: See triage assessment . ha1 02:35 Reassessment: Patient and/or family updated on plan of care and expected duration. Pain ha1 level reassessed. Patient is alert, oriented x 3, equal unlabored respirations, skin warm/dry/pink. Patient states symptoms have improved. Vital Signs: 01:51 BP 117 / 66; Pulse 106; Resp 20; Pulse Ox 100% on R/A; ha1 01:57 BP 117 / 66; Pulse 106; Resp 20 S; Temp 98.7(A); Pulse Ox 100% on R/A; Weight 90.72 kg; ha1 Height 5 ft. 5 in. (165.10 cm); Pain 10/10; 02:36 BP 122 / 83; Pulse 98; Resp 19 S; Pulse Ox 100% on R/A; ha1 01:57 Body Mass Index 33.28 (90.72 kg, 165.10 cm) ha1 ED Course: 01:48 Patient arrived in ED. [email or web address] 01:52 Patient has correct armband on for positive identification. Placed in gown. Bed in low ha1 position. Call light in reach. Side rails up X 1. Adult w/ patient. 01:56 Joshua Mar MD is Attending Physician. bs3 01:57 Judy Pedro, MRAIPOSA is Primary Nurse. ha1 02:00 Triage completed. ha1 02:00 Arm band placed on right wrist. ha1 02:19 No provider procedures requiring assistance completed. ha1 02:37 Patient did not have IV access during this emergency room visit. ha1 Administered Medications: 02:19 Drug: Ketorolac 30 mg Route: IM; Site: right ventrogluteal; ha1 02:39 Follow up: Response: No adverse reaction; Pain is decreased ha1 02:19 Drug: carBAMazepine 200 mg Route: PO; ha1 02:39 Follow up: Response: No adverse reaction ha1 Medication: 02:37 VIS not applicable for this client. ha1 Outcome: 02:11 Discharge ordered by . bs3 02:37 Discharged to home ambulatory, with family. ha1 02:37 Condition: stable 02:37 Discharge instructions given to patient, Instructed on discharge instructions, follow up and referral plans. medication usage, Demonstrated understanding of instructions, follow-up care, medications, Prescriptions given X 2. 02:50 Patient left the ED. ha1 Signatures: Tracy Jimenes [email or web address] Judy Pedro RN RN ha1 Joshua Mar MD MD bs3
--- NOTE | 2022-07-07 02:12 | EDPHYS ---
Physician Documentation [facility] Name: Mando Dillon Age: 21 yrs Sex: Female : 2000 Arrival Date: 07/07/2022 Time: 01:48 Bed 13 Private MD: ED Physician Joshua Mar HPI: 07/07 02:05 This 21 yrs old Female presents to ER via Ambulatory with complaints of bs3 Facial Swelling, Jaw Pain. 02:05 21-year-old female history of seizures history of occipital neuralgia not on any bs3 medication presents with right sided tooth pain she notes that it started suddenly at rest it is her upper and lower teeth in the posterior aspect she notes that she has a dull ache but then she gets intermittent lancing sharp stabbing pain she tried Orajel without relief just prior to arrival she denies fevers chills difficulty breathing swallowing swelling or anything else bothering her she has never had this before she does note that it feels like the pain that she had previously with her occipital neuralgia. Historical: - Allergies: 02:00 PENICILLINS; ha1 - Home Meds: 02:00 None [Active]; ha1 - PMHx: 02:00 None; ha1 - Immunization history:: Adult Immunizations up to date. - Social history:: Smoking status: Patient denies any tobacco usage or history of. ROS: 02:05 Constitutional: Negative for fever, chills Eyes: Negative for injury, pain, redness, bs3 and discharge, ENT: Negative for injury, pain, and discharge, Cardiovascular: Negative for chest pain, palpitations, and edema, Respiratory: Negative for shortness of breath, cough, wheezing Abdomen/GI: Negative for abdominal pain, nausea, vomiting, diarrhea MS/Extremity: Negative for injury and deformity, Neuro: Negative for headache, weakness, numbness, tingling, and seizure. Exam: 02:05 Constitutional: This is a well developed, well nourished patient who is awake, alert, bs3 and in no acute distress. Head/Face: Normocephalic, atraumatic. Eyes: Pupils equal round and reactive to light, extra-ocular motions intact. Lids and lashes normal. ENT: mmm, no posterior phyarngeal erythema, no focal pain to percussion over her teeth she has no periapical abscess Cardiovascular: Regular rate and rhythm with a normal S1 and S2. symmetric pulses in upper extremities Vital Signs: 01:51 BP 117 / 66; Pulse 106; Resp 20; Pulse Ox 100% on R/A; ha1 01:57 BP 117 / 66; Pulse 106; Resp 20 S; Temp 98.7(A); Pulse Ox 100% on R/A; Weight 90.72 kg; ha1 Height 5 ft. 5 in. (165.10 cm); Pain 10/10; 02:36 BP 122 / 83; Pulse 98; Resp 19 S; Pulse Ox 100% on R/A; ha1 01:57 Body Mass Index 33.28 (90.72 kg, 165.10 cm) ha1 MDM: 01:57 Patient medically screened. bs3 02:05 Differential diagnosis: dental caries, gingivitis, dental abscess, Trigeminal bs3 neuralgia. Data reviewed: vital signs, nurses notes. ED course: Possible dental infection although no obvious infection on my exam will treat in case there is an underlying infection I do suspect trigeminal neuralgia as during my exam prior to placing the tongue to pressure and percussing her teeth she winced in pain and noted that it was on the right back upper and lower teeth her symptoms are most consistent with a neuralgia will give antibiotics we will treat pain we will try carbamazepine patient advised of the prognosis advised follow-up with dental. Administered Medications: 02:19 Drug: Ketorolac 30 mg Route: IM; Site: right ventrogluteal; ha1 02:39 Follow up: Response: No adverse reaction; Pain is decreased ha1 02:19 Drug: carBAMazepine 200 mg Route: PO; ha1 02:39 Follow up: Response: No adverse reaction ha1 Disposition Summary: 07/07/22 02:11 Discharge Ordered Location: Home bs3 Problem: new bs3 Symptoms: are unchanged bs3 Condition: Stable bs3 Diagnosis - Trigeminal neuralgia bs3 - Dental caries on pit and fissure surface bs3 Followup: bs3 - With: Private Physician - When: 2 - 3 days - Reason: Re-evaluation by your physician Discharge Instructions: - Discharge Summary Sheet bs3 - Neuropathic Pain bs3 - Trigeminal Neuralgia bs3 Forms: - Medication Reconciliation Form bs3 - Thank You Letter bs3 - Antibiotic Education bs3 - Prescription Opioid Use bs3 Prescriptions: - Clindamycin HCl 300 mg Oral Capsule - take 1 capsule by ORAL route every 6 hours for 5 days; 20 capsule; Refills: 0, bs3 Product Selection Permitted - Carbamazepine 200 mg Oral Tablet - take 1 tablet by ORAL route every 12 hours; 20 tablet; Refills: 0, Product bs3 Selection Permitted Signatures: Judy Pedro RN RN ha1 Joshua Mar MD MD bs3
[2022-07-07] MEDS ORDERED: carBAMazepine 200 MG TAB ONE (02:14)
[2022-07-07] MEDS ORDERED: KETOROLAC 30 MG/ML INJ ONE (02:14)
[2022-07-07 04:36] VITALS: BP 122/83; O2SAT 100
[2022-07-07 04:38] VITALS: TEMP 98.7
== END 2022-07-07 02:50 | disposition home or self-care (01) ==
LOC: ER 01:46
DX: G50.0 Trigeminal neuralgia (principal); K02.9 Dental caries, unspecified; R56.9 Unspecified convulsions; Z88.0 Allergy status to penicillin